=== PATIENT | male | born 1930 | race Caucasian/White ===

== ENCOUNTER → 2016-05-10 | Outpatient (CLI) | payer MEDICARE, BC ==
[~2016-05-10] MED LIST: ATORVASTATIN CA10 MG PO; CLOPIDOGREL PO; LEVOTHYROXIN0.025 MG; LEVOTHYROXINE100 MC1 PO; LOPRESSOR 225 MG/TAB PO; PROSCAR PO
== END ==
LOC: LAB 07:54
DX: D64.9 Anemia, unspecified (principal); E78.5 Hyperlipidemia, unspecified; N28.9 Disorder of kidney and ureter, unspecified; R53.83 Other fatigue

== ENCOUNTER → 2016-07-15 | Outpatient (CLI) | payer MEDICARE, BC ==
[2015-11-25 16:23] VITALS: BP 141/77
== END ==
LOC: LAB 11:12 → RAD 11:12
DX: M79.604 Pain in right leg (principal)
CPT/HCPCS: Q9967

== ENCOUNTER → 2016-08-02 | Outpatient (CLI) | payer MEDICARE, BC ==
[2015-11-25 16:23] VITALS: BP 141/77
== END ==
LOC: RAD 10:42
DX: M79.604 Pain in right leg (principal)

== ENCOUNTER → 2016-10-28 | Outpatient (CLI) | payer MEDICARE, BC ==
[2015-11-25 16:23] VITALS: BP 141/77
== END ==
LOC: LAB 14:22
DX: N18.3 Chronic kidney disease, stage 3 (moderate) (principal)

== ENCOUNTER → 2016-11-08 | Outpatient (CLI) | payer MEDICARE, BC ==
[2015-11-25 16:23] VITALS: BP 141/77
== END ==
LOC: LAB 12:47
DX: I70.245 Atherosclerosis of native arteries of left leg with ulceration of other part of foot (principal)

== ENCOUNTER → 2016-12-06 | Outpatient (CLI) | payer MEDICARE, BC ==
[2015-11-25 16:23] VITALS: BP 141/77
== END ==
LOC: LAB 13:36
DX: I70.245 Atherosclerosis of native arteries of left leg with ulceration of other part of foot (principal)

== ENCOUNTER → 2017-02-18 | Outpatient (CLI) | payer MEDICARE, BC ==
[2015-11-25 16:23] VITALS: BP 141/77
[2017-02-18 08:55] LABS: BUN/CREATININE RATIO 15.9 (6.0-26.0); CALCIUM 8.5 mg/dL (8.4-10.2); POTASSIUM 4.3 mmol/L (3.6-5.0)
[2017-02-18 17:34] LABS: PH-URINE 5.5 (5.0 - 8.0); URINE APPEARANCE CLEAR; URINE BILIRUBIN NEGATIVE (NEGATIVE); URINE BLOOD TRACE (NEGATIVE); URINE COLOR YELLOW; URINE GLUCOSE NEGATIVE (NEGATIVE); URINE KETONE NEGATIVE (NEGATIVE); URINE LEUKOCYTE ESTERASE NEGATIVE (NEGATIVE); URINE NITRATE NEGATIVE (NEGATIVE); URINE PROTEIN(semi-quant) TRACE mg/dL (NEGATIVE); URINE UROBILINOGEN NORMAL (NORMAL); URINE WBC 0-1 /hpf (0-3)
== END ==
LOC: LAB 07:13
PROVIDERS: Internal Medicine
DX: N18.3 Chronic kidney disease, stage 3 (moderate) (principal); N40.1 Benign prostatic hyperplasia with lower urinary tract symptoms

== ENCOUNTER → 2017-10-13 | Outpatient (CLI) | payer MEDICARE, BC ==
[2015-11-25 16:23] VITALS: BP 141/77
[2017-10-13 08:44] LABS: URINE WBC 0 /hpf (0-3)
[2017-10-13 08:52] LABS: BUN/CREATININE RATIO 17.3 (6.0-26.0); CALCIUM 8.7 mg/dL (8.4-10.2); POTASSIUM 4.4 mmol/L (3.6-5.0)
[2017-10-13 09:00] LABS: URINE APPEARANCE CLEAR; URINE COLOR YELLOW; URINE PROTEIN(semi-quant) TRACE mg/dL (NEGATIVE)
[2017-10-13 09:01] LABS: URINE BILIRUBIN NEGATIVE (NEGATIVE); URINE BLOOD 50 ery/uL (NEGATIVE); URINE GLUCOSE NEGATIVE (NEGATIVE); URINE KETONE NEGATIVE (NEGATIVE); URINE LEUKOCYTE ESTERASE NEGATIVE (NEGATIVE); URINE NITRATE NEGATIVE (NEGATIVE); URINE UROBILINOGEN NORMAL (NORMAL)
== END ==
LOC: LAB 08:23
PROVIDERS: Internal Medicine
DX: N18.3 Chronic kidney disease, stage 3 (moderate) (principal)

== ENCOUNTER → 2018-05-05 | Outpatient (CLI) | payer MEDICARE, BC | LOC: AMSURD 12:53 | DX: I48.0 Paroxysmal atrial fibrillation (principal) ==

== ENCOUNTER → 2018-08-14 | Outpatient (CLI) | payer MEDICARE, BC ==
[2018-05-05 13:07] VITALS: BP 125/65
[~2018-08-14] MED LIST changes: +ISOSORBIDE30 MG PO
[2018-08-14 13:04] LABS: CALCIUM 8.7 mg/dL (8.3-10.5); POTASSIUM 4.4 mmol/L (3.5-5.1)
[2018-08-14 13:23] LABS: URINE APPEARANCE CLEAR; URINE BILIRUBIN NEGATIVE (NEGATIVE); URINE BLOOD 50 ery/uL (NEGATIVE); URINE COLOR YELLOW; URINE GLUCOSE NEGATIVE (NEGATIVE); URINE KETONE NEGATIVE (NEGATIVE); URINE LEUKOCYTE ESTERASE NEGATIVE (NEGATIVE); URINE NITRATE NEGATIVE (NEGATIVE); URINE PROTEIN(semi-quant) TRACE mg/dL (NEGATIVE); URINE UROBILINOGEN NORMAL (NORMAL)
== END ==
LOC: LAB 12:31
PROVIDERS: Internal Medicine
DX: N18.3 Chronic kidney disease, stage 3 (moderate) (principal); N40.0 Benign prostatic hyperplasia without lower urinary tract symptoms

== ENCOUNTER 2019-01-04 08:00 | Outpatient (RCR) | payer MEDICARE, BC ==
[2018-05-05 13:07] VITALS: BP 125/65
== END 2019-01-04 08:30 | disposition still patient (30) ==
LOC: OT 08:00
DX: M19.90 Unspecified osteoarthritis, unspecified site (principal)

== ENCOUNTER → 2019-03-16 | Outpatient (CLI) | payer MEDICARE, BC ==
[2018-05-05 13:07] VITALS: BP 125/65
[2019-03-16 09:31] LABS: HEMATOCRIT 43.6 % (42.0-52.0); HEMOGLOBIN 14.2 g/dL (13.5-18.0); MEAN PLATELET VOLUME 10.6 fl (7.4-10.4); RED BLOOD COUNT 4.5 M/mm3 (4.20-5.60); RED CELL DISTRIBUTION WIDTH 13.2 % (11.5-14.5); WHITE BLOOD COUNT 7.6 K/mm3 (4.8-10.8)
[2019-03-16 09:34] LABS: POTASSIUM 4.9 mmol/L (3.5-5.1)
[2019-03-16 09:35] LABS: CALCIUM 8.9 mg/dL (8.3-10.5); PROTHROMBIN TIME 11.7 SECONDS (9.0-12.0)
== END ==
LOC: LAB 09:10
PROVIDERS: Internal Medicine Interventional Cardiology
DX: R00.1 Bradycardia, unspecified (principal)

== ENCOUNTER 2019-05-11 09:30 | Outpatient (RCR) | payer MEDICARE, BC ==
[2018-05-05 13:07] VITALS: BP 125/65
== END 2019-05-11 10:00 | disposition still patient (30) ==
LOC: OT 09:30
DX: M75.101 Unspecified rotator cuff tear or rupture of right shoulder, not specified as traumatic (principal); M19.011 Primary osteoarthritis, right shoulder

== ENCOUNTER → 2019-10-05 | Outpatient (CLI) | payer MEDICARE, BC ==
[2018-05-05 13:07] VITALS: BP 125/65
[2019-10-05 07:14] LABS: HEMATOCRIT 41.2 % (42.0-52.0); HEMOGLOBIN 13.6 g/dL (13.5-18.0); MEAN CELL VOLUME 97 fl (78-100); MEAN CORPUSCULAR HEMOGLOBIN 32 pg (27-31); MEAN CORPUSCULAR HGB CONC 33 g/dL (33-37); MEAN PLATELET VOLUME 10.4 fl (7.4-10.4); PLATELET COUNT 152 K/mm3 (130-400); RED BLOOD COUNT 4.24 M/mm3 (4.20-5.60); RED CELL DISTRIBUTION WIDTH 12.9 % (11.5-14.5); WHITE BLOOD COUNT 5.8 K/mm3 (4.8-10.8)
[2019-10-05 07:24] LABS: POTASSIUM 4.8 mmol/L (3.5-5.1)
[2019-10-05 07:25] LABS: ALBUMIN 4.1 g/dL (3.4-4.8)
[2019-10-05 07:26] LABS: CALCIUM 8.6 mg/dL (8.3-10.5)
[2019-10-05 07:27] LABS: TOTAL PROTEIN 7.3 g/dL (6.2-8.1)
[2019-10-05 07:29] LABS: TOTAL BILIRUBIN 0.7 mg/dL (0.2-1.2)
[2019-10-05 07:45] LABS: LYMPHOCYTE 25 % (20-51); MONOCYTE 14 % (3-10); NEUTROPHILS 56 % (42-75)
== END ==
LOC: LAB 07:02
PROVIDERS: Internal Medicine Pulmonary Disease
DX: E03.9 Hypothyroidism, unspecified (principal); E78.5 Hyperlipidemia, unspecified

== ENCOUNTER → 2019-11-27 | Outpatient (CLI) | payer MEDICARE, BC ==
[2018-05-05 13:07] VITALS: BP 125/65
== END ==
LOC: LAB 09:10
DX: R05 Cough (principal)

== ENCOUNTER → 2020-03-31 | Outpatient (CLI) | payer MEDICARE, BC ==
[2018-05-05 13:07] VITALS: BP 125/65
[2020-03-31 13:00] LABS: POTASSIUM 4.8 mmol/L (3.5-5.1)
[2020-03-31 13:01] LABS: CALCIUM 8.4 mg/dL (8.3-10.5)
== END ==
LOC: LAB 12:34
PROVIDERS: Internal Medicine Nephrology
DX: N18.30 Chronic kidney disease, stage 3 unspecified (principal)

== ENCOUNTER → 2020-06-09 | Outpatient (CLI) | payer MEDICARE, BC ==
[2018-05-05 13:07] VITALS: BP 125/65
[2020-06-09 08:09] LABS: ALBUMIN 4.1 g/dL (3.4-4.8); POTASSIUM 5.1 mmol/L (3.5-5.1)
[2020-06-09 08:10] LABS: CALCIUM 8.8 mg/dL (8.3-10.5)
[2020-06-09 08:12] LABS: TOTAL PROTEIN 7.2 g/dL (6.2-8.1)
[2020-06-09 08:14] LABS: TOTAL BILIRUBIN 0.8 mg/dL (0.2-1.2)
[2020-06-09 08:19] LABS: EOS # 0.3 (0.04-0.40); HEMATOCRIT 44.4 % (42.0-52.0); HEMOGLOBIN 14.4 g/dL (13.5-18.0); LYMPH# 1.3 (1.50-4.00); MEAN CELL VOLUME 98 fl (78-100); MEAN CORPUSCULAR HEMOGLOBIN 32 pg (27-31); MEAN CORPUSCULAR HGB CONC 32 g/dL (33-37); MEAN PLATELET VOLUME 10.6 fl (7.4-10.4); MONO # 0.7 (0.20-0.80); NEU # 3.8 (1.40-6.50); PLATELET COUNT 153 K/mm3 (130-400); RED BLOOD COUNT 4.53 M/mm3 (4.20-5.60); RED CELL DISTRIBUTION WIDTH 13.4 % (11.5-14.5); WHITE BLOOD COUNT 6.2 K/mm3 (4.8-10.8)
[2020-06-09 08:44] LABS: EOS % 5.4 % (0.0-4.0)
== END ==
LOC: LAB 07:42
PROVIDERS: Family Medicine
DX: I25.10 Atherosclerotic heart disease of native coronary artery without angina pectoris (principal); N18.30 Chronic kidney disease, stage 3 unspecified; E78.5 Hyperlipidemia, unspecified; I48.0 Paroxysmal atrial fibrillation; R73.01 Impaired fasting glucose

== ENCOUNTER → 2020-07-29 | Outpatient (CLI) | payer MEDICARE, BC ==
[2018-05-05 13:07] VITALS: BP 125/65
== END ==
LOC: LAB 09:02
DX: Z01.812 Encounter for preprocedural laboratory examination (principal); I25.10 Atherosclerotic heart disease of native coronary artery without angina pectoris; Z20.822 Contact with and (suspected) exposure to COVID-19

== ENCOUNTER → 2020-07-30 | Outpatient (CLI) | payer MEDICARE, BC ==
[2018-05-05 13:07] VITALS: BP 125/65
== END ==
LOC: LAB 12:14
PROVIDERS: Internal Medicine Gastroenterology
DX: R14.0 Abdominal distension (gaseous) (principal); R14.2 Eructation

== ENCOUNTER → 2020-07-31 | Outpatient (CLI) | payer MEDICARE, BC ==
[2018-05-05 13:07] VITALS: BP 125/65
== END ==
LOC: RAD 10:24
DX: J43.9 Emphysema, unspecified (principal); I77.811 Abdominal aortic ectasia; M51.46 Schmorl's nodes, lumbar region

== ENCOUNTER → 2020-12-30 | Outpatient (CLI) | payer MEDICARE, BC | LOC: RAD 08:18 | DX: N40.0 Benign prostatic hyperplasia without lower urinary tract symptoms (principal); N18.30 Chronic kidney disease, stage 3 unspecified ==

== ENCOUNTER → 2021-06-12 | Outpatient (CLI) | payer MEDICARE, BC ==
[2021-06-12 08:08] LABS: BASO # 0.04 K/mm3 (0.02-0.10); EOS # 0.45 K/mm3 (0.04-0.40); EOS % 6.4 % (0.0-4.0); HEMATOCRIT 44.1 % (42.0-52.0); HEMOGLOBIN 14.6 g/dL (13.5-18.0); LYMPH# 1.53 K/mm3 (1.50-4.00); MEAN CELL VOLUME 97 fl (78-100); MEAN CORPUSCULAR HEMOGLOBIN 32 pg (27-31); MEAN CORPUSCULAR HGB CONC 33 g/dL (33-37); MEAN PLATELET VOLUME 10.3 fl (7.4-10.4); MONO # 0.87 K/mm3 (0.20-0.80); NEU # 4.09 K/mm3 (1.40-6.50); PLATELET COUNT 154 K/mm3 (130-400); RED BLOOD COUNT 4.57 M/mm3 (4.20-5.60); RED CELL DISTRIBUTION WIDTH 13.2 % (11.5-14.5)
[2021-06-12 08:14] LABS: ALBUMIN 3.9 g/dL (3.4-4.8); POTASSIUM 4.5 mmol/L (3.5-5.1)
[2021-06-12 08:15] LABS: CALCIUM 8.9 mg/dL (8.3-10.5)
[2021-06-12 08:17] LABS: TOTAL PROTEIN 7.2 g/dL (6.2-8.1)
[2021-06-12 08:18] LABS: TOTAL BILIRUBIN 0.6 mg/dL (0.2-1.2)
== END ==
LOC: LAB 07:49
PROVIDERS: Family Medicine
DX: I12.9 Hypertensive chronic kidney disease with stage 1 through stage 4 chronic kidney disease, or unspecified chronic kidney disease (principal); N18.4 Chronic kidney disease, stage 4 (severe); E78.5 Hyperlipidemia, unspecified; E03.9 Hypothyroidism, unspecified

== ENCOUNTER → 2021-08-17 | Outpatient (CLI) | payer MEDICARE, BC ==
[2021-08-17 09:23] LABS: POTASSIUM 4.5 mmol/L (3.5-5.1)
[2021-08-17 09:24] LABS: CALCIUM 8.9 mg/dL (8.3-10.5)
== END ==
LOC: LAB 08:53
PROVIDERS: Internal Medicine Nephrology
DX: N18.32 Chronic kidney disease, stage 3b (principal); N40.1 Benign prostatic hyperplasia with lower urinary tract symptoms

== ENCOUNTER → 2021-10-02 | Outpatient (CLI) | payer MEDICARE, BC | LOC: LAB 09:32 | DX: I50.20 Unspecified systolic (congestive) heart failure (principal) ==